=== PATIENT | female | born 2000 | race African-American/Black ===

== ENCOUNTER 2021-08-23 16:23 | Emergency (ER) | payer MEDICAID ==
[~2021-08-23] VITALS: Ht 152 cm; Wt 70.0 kg
--- NOTE | 2021-08-23 17:07 | ED Abdominal Pain ---
General Chief Complaint: OB < 20 WEEKS Stated Complaint: 18 WKS PREG/PRESSURE Nursing Triage Note: Pt c/o lower abd pressure x3 days. Pt is approx 18 wks . Pt denies any bleeding or discharge. States pain has been fairly constant over last 3 days but a little worse today. Source of Information: Patient Exam Limitations: No Limitations History of Present Illness Date Seen by Provider: Aug 23, 2021 Time Seen by Provider: 17:05 Initial Comments Patient is a 21-year-old female who is G2, P1 who presents ED with lower abdominal pressure for the past 3 days. Pain for the most part has been constant. No radiation. She denies of any urinary symptoms such as frequent urination, dysuria, vaginal bleeding, vaginal discharge. Not concern for sexual transmitted infection. She is currently being managed by Dr. Nguyen. She is scheduled to follow-up with Dr. Hernandez. Was recommended come to ED for further evaluation. No fever, vomiting, diarrhea. She does not appear in acute distress Allergies and Home Medications Allergies Coded Allergies: No Known Drug Allergies (Unverified , 08/23/21) Patient Home Medication List Home Medication List Reviewed: Yes Review of Systems Review of Systems Constitutional: No chills, No diaphoresis, No malaise, No weakness EENTM: No Blurred Vision, No Double Vision Respiratory: Denies Cough Cardiovascular: Denies Chest Pain, Denies Edema Gastrointestinal: Abdominal Pain; Denies Diarrhea, Denies Nausea Genitourinary: Denies Burning, Denies Frequency, Denies Flank Pain Musculoskeletal: No back pain, No joint pain Skin: No change in color All Other Systems Reviewed Negative Unless Noted: Yes Past Qbcdepw-Cmpcla-Dwoyzp Hx Patient Social History Tobacco Use?: No Substance use?: No Alcohol Use?: No Past Medical History Surgery/Hospitalization HX: pt denies PMH, previous Expected Date of Delivery: Jan 21, 2022 Physical Exam Vital Signs Vital Signs - First Documented 08/23/21 16:40 Temp 37.3 Pulse 84 Resp 18 B/P (MAP) 126/79 (95) Pulse Ox 100 O2 Delivery Room Air Capillary Refill : Less Than 3 Seconds Height/Weight/BMI Height: '" Weight: lbs. oz. kg; 30.00 BMI Method: General Appearance: WD/WN, no apparent distress HEENT: PERRL/EOMI, normal ENT inspection, TMs normal, pharynx normal Neck: non-tender, full range of motion, supple Respiratory: chest non-tender, lungs clear, normal breath sounds, no respiratory distress Cardiovascular: regular rate, rhythm, no edema, no gallop, no JVD Gastrointestinal: normal bowel sounds, non tender, soft, no organomegaly, no pulsatile mass Extremities: normal range of motion, non-tender, normal inspection, no pedal edema Back: normal inspection, no CVA tenderness, no vertebral tenderness Neurologic/Psychiatric: appeals representative II-XII nml as tested, no motor/sensory deficits, alert, normal mood/affect, oriented x 3 Skin: normal color, warm/dry Progress/Results/Core Measures Results/Orders Lab Results Laboratory Tests Test 08/23/21 17:14 08/23/21 17:18 Range/Units Urine Color YELLOW Urine Clarity SL CLOUDY Urine pH 6.0 5-9 Urine Specific [address] Circle >=1.030 1.016-1.022 Urine Protein NEGATIVE NEGATIVE Urine Glucose (UA) NEGATIVE NEGATIVE Urine Ketones NEGATIVE NEGATIVE Urine Nitrite NEGATIVE NEGATIVE Urine Bilirubin NEGATIVE NEGATIVE Urine Urobilinogen 0.2 < = 1.0 MG/DL Urine Leukocyte Esterase NEGATIVE NEGATIVE Urine RBC (Auto) NEGATIVE NEGATIVE Urine RBC RARE /HPF Urine WBC 2-5 /HPF Urine Squamous Epithelial Cells 2-5 /HPF Urine Crystals NONE /LPF Urine Bacteria MODERATE H /HPF Urine Casts NONE /LPF Urine Mucus NEGATIVE /LPF Urine Culture Indicated YES White Blood Count 14.7 H 4.3-11.0 10^3/uL Red Blood Count 4.26 3.80-5.11 10^6/uL Hemoglobin 9.4 L 11.5-16.0 g/dL Hematocrit 29 L 35-52 % Mean Corpuscular Volume 68 L 80-99 fL Mean Corpuscular Hemoglobin 22 L 25-34 pg Mean Corpuscular Hemoglobin Concent 32 32-36 g/dL Red Cell Distribution Width 14.6 H 10.0-14.5 % Platelet Count 370 130-400 10^3/uL Mean Platelet Volume 10.6 9.0-12.2 fL Immature Granulocyte % (Auto) 0 % Neutrophils (%) (Auto) 69 42-75 % Lymphocytes (%) (Auto) 24 12-44 % Monocytes (%) (Auto) 6 0-12 % Eosinophils (%) (Auto) 1 0-10 % Basophils (%) (Auto) 0 0-10 % Neutrophils # (Auto) 10.2 H 1.8-7.8 10^3/uL Lymphocytes # (Auto) 3.5 1.0-4.0 10^3/uL Monocytes # (Auto) 0.9 0.0-1.0 10^3/uL Eosinophils # (Auto) 0.1 0.0-0.3 10^3/uL Basophils # (Auto) 0.0 0.0-0.1 10^3/uL Immature Granulocyte # (Auto) 0.1 0.0-0.1 10^3/uL Neutrophils % (Manual) 64 % Lymphocytes % (Manual) 29 % Monocytes % (Manual) 3 % Eosinophils % (Manual) 4 % Helmet Cells SLIGHT Elliptocytes SLIGHT Sodium Level 135 135-145 MMOL/L Potassium Level 3.5 L 3.6-5.0 MMOL/L Chloride Level 106 98-107 MMOL/L Carbon Dioxide Level 21 21-32 MMOL/L Anion Gap 8 5-14 MMOL/L Blood Urea Nitrogen 11 7-18 MG/DL Creatinine 0.68 0.60-1.30 MG/DL Estimat Glomerular Filtration Rate 125 BUN/Creatinine Ratio 16 Glucose Level 84 70-105 MG/DL Calcium Level 8.8 8.5-10.1 MG/DL Corrected Calcium 9.2 8.5-10.1 MG/DL Total Bilirubin 0.3 0.1-1.0 MG/DL Aspartate Amino Transf (AST/SGOT) 13 5-34 U/L Alanine Aminotransferase (ALT/SGPT) 19 0-55 U/L Alkaline Phosphatase 69 40-136 U/L Total Protein 7.0 6.4-8.2 GM/DL Albumin 3.5 3.2-4.5 GM/DL My Orders Orders - SPENCER WILKES Ua Culture If Indicated (08/23/21 17:04) Cbc With Automated Diff (08/23/21 17:04) Comprehensive Metabolic Panel (08/23/21 17:04) Heart Tones (08/23/21 17:04) Manual Differential (08/23/21 17:18) Urine Culture (08/23/21 17:14) Vital Signs/I&O 08/23/21 08/23/21 16:40 17:50 Temp 37.3 Pulse 84 77 Resp 18 18 B/P (MAP) 126/79 (95) 118/70 Pulse Ox 100 100 O2 Delivery Room Air Room Air Blood Pressure Mean: 95 Departure Communication (PCP) Bedside ultrasound cardiac activity. heart tones 156. Lab work otherwise unremarkable besides hemoglobin 9. Urinalysis negative for infection. Symptoms likely round ligament pain from . Continue with conservative treatment at this time. Tylenol for pain. Recommend ASS[employer] outpatient follow- up. If any worsening symptoms return back to ED. No surgical abdomen. Distress the importance of continue her prenatals. Talk to her primary care physician for the hemoglobin. Patient vital signs stable. She is not diabetic or hypertensive. Continue with conservative treatment at this time with Tylenol and rest. Recommend recheck of hemoglobin. Impression Primary Impression: Abdominal pain Disposition: HOME, SELF-CARE Condition: Stable Departure-Patient Inst. Decision time for Depature: 17:39 Referrals: ANIBAL NGUYEN MD (PCP/Family) Primary Care Physician Patient Instructions: Abdominal Pain, Adult ED Work/School Note: Work Release Form Date Seen in the Emergency Department: Aug 23, 2021 Return to Work: Aug 26, 2021 SPENCER WILKES Aug 23, 2021 17:07
[2021-08-23 17:21] LABS: BILIRUBIN,URINE NEGATIVE (NEGATIVE); CLARITY,URINE SL CLOUDY; COLOR,URINE YELLOW; GLUCOSE, URINE (UA) NEGATIVE (NEGATIVE); KETONES,URINE NEGATIVE (NEGATIVE); LEUKOCYTE ESTERASE ,URINE NEGATIVE (NEGATIVE); NITRITE,URINE NEGATIVE (NEGATIVE); PROTEIN,URINE NEGATIVE (NEGATIVE)
[2021-08-23 17:22] LABS: BASOPHILS % (AUTO) 0 % (0-10); EOSINOPHILS # (AUTO) 0.1 10^3/uL (0.0-0.3); EOSINOPHILS % (AUTO) 1 % (0-10); HEMATOCRIT 29 % (35-52); HEMOGLOBIN 9.4 g/dL (11.5-16.0); LYMPHOCYTES # (AUTO) 3.5 10^3/uL (1.0-4.0); LYMPHOCYTES % (AUTO) 24 % (12-44); MEAN CORPUSCULAR HEMOGLOBIN 22 pg (25-34); MEAN CORPUSCULAR HGB CONC 32 g/dL (32-36); MEAN CORPUSCULAR VOLUME 68 fL (80-99); MEAN PLATELET VOLUME 10.6 fL (9.0-12.2); MONOCYTES # (AUTO) 0.9 10^3/uL (0.0-1.0); MONOCYTES % (AUTO) 6 % (0-12); NEUTROPHILS # (AUTO) 10.2 10^3/uL (1.8-7.8); NEUTROPHILS % (AUTO) 69 % (42-75); PLATELET COUNT 370 10^3/uL (130-400); WHITE BLOOD COUNT 14.7 10^3/uL (4.3-11.0)
[2021-08-23 17:29] LABS: BACTERIA,URINE MODERATE /HPF; RBC,URINE RARE /HPF
[2021-08-23 17:30] LABS: ALBUMIN 3.5 GM/DL (3.2-4.5); POTASSIUM 3.5 MMOL/L (3.6-5.0)
[2021-08-23 17:32] LABS: CALCIUM 8.8 MG/DL (8.5-10.1)
[2021-08-23 17:35] LABS: BILIRUBIN,TOTAL 0.3 MG/DL (0.1-1.0)
[2021-08-23 17:36] LABS: CREATININE SERUM 0.68 MG/DL (0.60-1.30)
[2021-08-23 17:50] VITALS: BP 118/70
[2021-08-23 18:01] LABS: ELLIPT/OVALOCYTES SLIGHT; EOSINOPHILS % (MANUAL) 4 %; HELMET/BITE CELLS SLIGHT; LYMPHOCYTES % (MANUAL) 29 %; MONOCYTES % (MANUAL) 3 %; NEUTROPHILS % (MANUAL) 64 %
== END 2021-08-23 17:49 | disposition home or self-care (01) ==
LOC: EDUNIT# 16:23 → ER 16:25
DX: O26.892 Other specified pregnancy related conditions, second trimester (principal); R10.30 Lower abdominal pain, unspecified; Z3A.18 18 weeks gestation of pregnancy
CPT/HCPCS: 36415; 80053; 81000; 85007; 85027; 87088

== ENCOUNTER 2021-10-26 11:15 | Outpatient (CLI) | payer MEDICAID ==
[~2021-10-26] VITALS: Ht 152.4 cm; Wt 71.2 kg
[2021-10-26 11:30] VITALS: BP 114/68
[2021-10-26] MEDS ORDERED: ONDANSETRON 4 MG/2 ML (SDV) Z0FRAN IVP ONE (12:00)
[2021-10-26] MEDS: D5 LR IV SOLUTION 1,000 ML IV SCH ×2 (12:21→15:00)
[2021-10-26 12:25] VITALS: BP 104/63
[2021-10-26 12:34] LABS: BILIRUBIN,URINE NEGATIVE (NEGATIVE); CLARITY,URINE CLEAR; COLOR,URINE YELLOW; GLUCOSE, URINE (UA) NEGATIVE (NEGATIVE); KETONES,URINE 2+ (NEGATIVE); LEUKOCYTE ESTERASE ,URINE NEGATIVE (NEGATIVE); NITRITE,URINE NEGATIVE (NEGATIVE); PROTEIN,URINE TRACE (NEGATIVE)
[2021-10-26 12:37] LABS: BASOPHILS % (AUTO) 0 % (0-10); EOSINOPHILS % (AUTO) 0 % (0-10); HEMATOCRIT 27 % (35-52); HEMOGLOBIN 8.7 g/dL (11.5-16.0); LYMPHOCYTES # (AUTO) 1.6 10^3/uL (1.0-4.0); LYMPHOCYTES % (AUTO) 14 % (12-44); MEAN CORPUSCULAR HEMOGLOBIN 22 pg (25-34); MEAN CORPUSCULAR HGB CONC 32 g/dL (32-36); MEAN CORPUSCULAR VOLUME 68 fL (80-99); MEAN PLATELET VOLUME 10.8 fL (9.0-12.2); MONOCYTES # (AUTO) 0.4 10^3/uL (0.0-1.0); MONOCYTES % (AUTO) 4 % (0-12); NEUTROPHILS # (AUTO) 9.1 10^3/uL (1.8-7.8); NEUTROPHILS % (AUTO) 81 % (42-75); PLATELET COUNT 278 10^3/uL (130-400); WHITE BLOOD COUNT 11.3 10^3/uL (4.3-11.0)
[2021-10-26 12:46] LABS: BACTERIA,URINE MODERATE /HPF; WBC,URINE RARE /HPF
[2021-10-26 13:02] LABS: ALBUMIN 3.1 GM/DL (3.2-4.5); BILIRUBIN,TOTAL 0.6 MG/DL (0.1-1.0); CALCIUM 8.7 MG/DL (8.5-10.1); CREATININE SERUM 0.63 MG/DL (0.60-1.30); POTASSIUM 3.7 MMOL/L (3.6-5.0); TOTAL PROTEIN 6.7 GM/DL (6.4-8.2)
--- NOTE | 2021-10-27 08:37 | Physician Query-Final Dx ---
JUAN10/27/21 0837: Clinic Account Progress/Dx Physician Query: Please give diagnosis Please include # weeks gestation Date of Service Oct 26, 2021 at 11:15 ADELAIDE JAIN MD 10/27/21 1104: Clinic Account Progress/Dx DIAGNOSIS: Diagnosis Hyperemesis gravidarum at 27 weeks gestation JUAN,MarOct 27, 2021 08:37 ADELAIDE JAIN MD Oct 27, 2021 11:04
== END 2021-10-26 16:47 | disposition home or self-care (01) ==
LOC: WSo 11:15 → LDRP 11:17 → WSo 16:47
PROVIDERS: ATTEND Obstetrics & Gynecology
DX: O21.0 Mild hyperemesis gravidarum (principal); Z3A.27 27 weeks gestation of pregnancy
CPT/HCPCS: 36415; 80053; 81000; 85025; 87088; 87636

== ENCOUNTER 2022-01-16 04:06 | Outpatient (CLI) | payer MEDICAID ==
[~2022-01-16] VITALS: Ht 152.4 cm; Wt 72.2 kg
[~2022-01-16 04:06] MED LIST: CEPH500T PO
[2022-01-16 04:45] VITALS: BP 128/79
[2022-01-16 05:08] LABS: BILIRUBIN,URINE NEGATIVE (NEGATIVE); CLARITY,URINE CLEAR; COLOR,URINE YELLOW; GLUCOSE, URINE (UA) NEGATIVE (NEGATIVE); KETONES,URINE NEGATIVE (NEGATIVE); LEUKOCYTE ESTERASE ,URINE 1+ (NEGATIVE); NITRITE,URINE NEGATIVE (NEGATIVE); PH,URINE 6.5 (5-9); PROTEIN,URINE NEGATIVE (NEGATIVE)
[2022-01-16 05:22] LABS: BACTERIA,URINE MODERATE /HPF; SQUAMOUS EPITHELIAL CELL,UR 25-50 /HPF
[2022-01-16] MEDS ORDERED: NS IV 1000 ML 500 ML IV SCH (05:30)
[2022-01-16] MEDS ORDERED: ceFAZolin INJECTION 1,000 MG VIAL IV ONE (05:30)
[2022-01-16] MEDS ORDERED: ceFAZolin INJECTION 1,000 MG ONE (05:39)
[2022-01-16] MEDS ORDERED: NS (IVPB) 50 ML ONE (05:40)
[2022-01-16] MEDS ORDERED: NS IV 1000 ML 1,000 ML ONE (05:40)
[2022-01-16 06:57] VITALS: BP 135/90
[2022-01-16] MEDS ORDERED: PNV11TAB5 PO (15:19)
[2022-01-17] MEDS ORDERED: IBUP-844 PO (08:30)
[2022-01-17] MEDS ORDERED: DIBU30OI TOP (08:30)
[2022-01-17] MEDS ORDERED: ACHD5005 PO (08:30)
[2022-01-17] MEDS ORDERED: BENZ78AE5 TP (08:30)
[2022-01-17] MEDS ORDERED: FERR325T24 PO (08:30)
--- NOTE | 2022-01-17 09:31 | Physician Query-Final Dx ---
JUAN,01/17/22 0931: Clinic Account Progress/Dx Physician Query: Please give diagnosis Please include # weeks gestation Date of Service Jan 16, 2022 at 04:06 ILANA MARTE DO 01/17/22 0943: Clinic Account Progress/Dx DIAGNOSIS: Diagnosis 39 week, JAMAR MARTINEZ,MarJan 17, 2022 09:31 ILANA MARTE DO Jan 17, 2022 09:43
== END 2022-01-16 06:57 ==
LOC: WSo 04:06 → LDRP 04:06 → WSo 06:57
PROVIDERS: ATTEND Obstetrics & Gynecology
DX: O23.43 Unspecified infection of urinary tract in pregnancy, third trimester (principal); Z3A.39 39 weeks gestation of pregnancy
CPT/HCPCS: 81000; 87088; 96361; 96374; 99213

== ENCOUNTER 2022-01-16 12:25 | Inpatient (IN) | payer MEDICAID ==
[2022-01-16] VITALS (14 sets, daily range): BP systolic 106–148; BP diastolic 66–95
[~2022-01-16] VITALS: Ht 152 cm; Wt 72.2 kg
[2022-01-16] MEDS ORDERED: D5 LR IV SOLUTION 1,000 ML IV ONE (12:29)
[2022-01-16] MEDS ORDERED: D5 LR IV SOLUTION 1,000 ML IV SCH (13:00)
[2022-01-16] MEDS ORDERED: HYDROmorphone 2 MG/ML VIAL (DILAUDID) IV NR (13:00)
[2022-01-16] MEDS ORDERED: LIDOCAINE 1% INJ 20 ML VIAL IJ PRN ×2 (13:00→13:55)
[2022-01-16] MEDS ORDERED: HYDROmorphone 2 MG/ML VIAL (DILAUDID) ONE (13:01)
[2022-01-16] MEDS ORDERED: OXYTOCIN PRE-MIX DRIP 500 ML IV ONE (13:01)
--- NOTE | 2022-01-16 13:03 | History & Physical-OB ---
NOAM BARRERA 01/16/22 1303: OB - Chief Complaint & HPI Date/Time Date of Admission: Date of Admission: Date seen by a Provider: Jan 16, 2022 Time Seen by a Provider: 12:45 Chief Complaint/History OB-Reason for Admission/Chief: Onset of Labor Hx : 2 Hx Para: 1 Expected Date of Delivery: Jan 21, 2022 Gestational Age in Weeks: 39 Gestational Age in Days: 2 Admission Nurse Assessment Rev: Yes Allergies and Home Medications Allergies Coded Allergies: No Known Drug Allergies (Unverified , 08/23/21) Patient Home Medication List Home Medication List Reviewed: Yes Cephalexin (Cephalexin) 500 Mg Tablet, 500 MG PO QID Prescribed by: MAX MARTE on 01/14/22 1542 Last Action: Reviewed Jys613/FA/Omega3/Dha/Fish Oil ( Gummies) 400 Mcg-32.5 Mg (25 Mg-7.5 Mg) Tab.chew, 1 EACH PO DAILY, (Reported) Entered as Reported by: KALIE SALMON on 01/16/22 151 Last Action: New Order OB - History Hx of Present Care: Yes Ultrasounds: Normal mid trimester US Obstetrical Complications: None Medical Complications: None Information Induced Hypertension: No Maternal Gestational Diabetes: No Delivery History Hx Section: Yes Patient Past Medical History Patient denies having any past medical history. Has had a previous cesarian section and left knee surgery. Social History/Family History Alcohol Use: Denies Use Recreational Drug Use: No Smoking Cessation: Never smoker 2nd Hand Smoke Exposure: No Immunizations Hepatitis A: Yes Hepatitis B: Yes Tetanus Booster (TDap): Less than 5yrs Rubella: immune RPR/VDRL: Negative GBS Status: Negative HBsAG: Negative OB - Admission Exam Physical Exam HEENT: Moist Membranes Heart: Rhythm Normal Lungs: Clear Abdomen: Non tender Extremities: Normal Cervical Dilatation: 8cm Effacement: 100% Station: -3 Membranes: Intact Heart Rate: 140's Accelerations: Accelerations Present Decelerations: No Decelerations Short Term Variability: Present Custodial Variability: Average (6-25) Contractions on Admission: < 5 Minutes Apart Date/Time Contractions Began;: 344 this morning Frequency of Contractions: Currently every 2 minutes Duration: 1 minute Intensity: Firm OB - Assessment/Plan/Diagnosis Assessment Assessment: active labor Admission Dx Patient is a 21yo F that is at 39w2d. She has had a section previously and is wanting to attempt . She was having contractions this morning and came to the hospital. She was diagnosed with a UTI last week and has been taking Abx. There were concerns that her UTI was not treated with the oral Abx so she was given IV Abx this morning for the UTI. She was discharged home afterwards but continued to have contractions throughout the day. Around 12:30 today her contractions started to be less than 10 minutes apart so she decided to come back to the hospital. She was 7-8cm dilated when she arrived to the ER and was admitted for active labor. Patient is currently experiencing painful contractions and states she is in a lot of pain. Her contractions are occuring about 2 minutes apart. Patient denies her water breaking at home or in the hospital. Per nurses report, the patient has had s small amount of clear vaginal fluid since being admitted. Patient denies headache, chest pain, sob, nausea, and vomiting. Admission Status: Observation Plan Plan: Expectant Management Other Plan Expectant management is being done. Continual cervical checks. Dilaudid was ordered for pain control along and narcan. MAX MARTE DO 01/17/22 0716: OB - Chief Complaint & HPI Date/Time Date seen by a Provider: Jan 16, 2022 Time Seen by a Provider: 13:30 Allergies and Home Medications Allergies Coded Allergies: No Known Drug Allergies (Unverified , 08/23/21) Patient Home Medication List Home Medication List Reviewed: Yes Cephalexin (Cephalexin) 500 Mg Tablet, 500 MG PO QID Prescribed by: MAX MARTE on 01/14/22 1542 Last Action: Reviewed Dmy533/FA/Omega3/Dha/Fish Oil ( Gummies) 400 Mcg-32.5 Mg (25 Mg-7.5 Mg) Tab.chew, 1 EACH PO DAILY, (Reported) Entered as Reported by: KALIE SALMON on 01/16/22 2239 Last Action: New Order OB - History Hx of Present Care: Yes Ultrasounds: Normal mid trimester US Obstetrical Complications: None Medical Complications: None Patient Past Medical History n/a OB - Admission Exam Physical Exam Cervical Dilatation: 8cm OB - Assessment/Plan/Diagnosis Assessment Assessment: active labor Admission Dx 21 yo @ 39 Weeks TOLAC GBS neg Plan correction: Dilaudid given, but narcan will be available to use for infant at . Verification and Attestation of Medical Student E/M Service A medical student performed and documented this service in my presence. I reviewed and verified all information documented by the medical student and made modifications to such information, when appropriate. I personally performed the physical exam and medical decision making. aMx Marte, Jan 17, 2022,07:15 Admission Status: Inpatient Order (span 2 midnights) Reason for Inpatient Admission: Active labor at 39 weeks Plan Plan: Expectant Management NOAM BARRERA Jan 16, 2022 13:03 MAX MARTE DO Jan 17, 2022 07:16
[2022-01-16] MEDS ORDERED: LIDOCAINE 1% INJ 10 ML VIAL ONE (13:04)
[2022-01-16 13:09] LABS: BASOPHILS # (AUTO) 0.1 10^3/uL (0.0-0.1); BASOPHILS % (AUTO) 0 % (0-10); EOSINOPHILS % (AUTO) 0 % (0-10); HEMATOCRIT 28 % (35-52); HEMOGLOBIN 8.9 g/dL (11.5-16.0); LYMPHOCYTES # (AUTO) 5.2 10^3/uL (1.0-4.0); LYMPHOCYTES % (AUTO) 36 % (12-44); MEAN CORPUSCULAR HEMOGLOBIN 21 pg (25-34); MEAN CORPUSCULAR HGB CONC 32 g/dL (32-36); MEAN CORPUSCULAR VOLUME 64 fL (80-99); MEAN PLATELET VOLUME 11.5 fL (9.0-12.2); MONOCYTES # (AUTO) 0.7 10^3/uL (0.0-1.0); MONOCYTES % (AUTO) 5 % (0-12); NEUTROPHILS # (AUTO) 8.3 10^3/uL (1.8-7.8); NEUTROPHILS % (AUTO) 58 % (42-75); PLATELET COUNT 308 10^3/uL (130-400); WHITE BLOOD COUNT 14.4 10^3/uL (4.3-11.0)
[2022-01-16] MEDS ORDERED: BUPIVACAINE 0.25% 30 ML (SENSORCAINE) VIAL ONE (13:27)
[2022-01-16] MEDS ORDERED: fentaNYL INJ 100 MCG/2 ML AMP ONE (13:27)
[2022-01-16] MEDS: OXYTOCIN PRE-MIX DRIP 500 ML IV SCH ×2 (13:54→14:34)
[2022-01-16] MEDS ORDERED: NALOXONE 0.4 MG/ML 1 ML (NARCAN) VIAL ONE (13:56)
[2022-01-16] MEDS ORDERED: CATHETER FLUSH 10 ML SYR IV SCH (14:00)
[2022-01-16 14:05] LABS: LYMPHOCYTES % (MANUAL) 58 %; MONOCYTES % (MANUAL) 4 %; NEUTROPHILS % (MANUAL) 40 %; PLATELET ESTIMATE NORMAL
[2022-01-16 14:06] LABS: ANISOCYTOSIS SLIGHT
[2022-01-16] MEDS ORDERED: TETANUS,DIPTH,PERTUSS P/F (BOOSTRIX) 0.5 ML VIAL IM ONE (14:15)
[2022-01-16] MEDS ORDERED: NALOXONE 0.4 MG/ML 1 ML (NARCAN) VIAL IV PRN (14:15)
[2022-01-16] MEDS ORDERED: HYDROcodone/APAP 5 MG/325 MG (LORTAB) TAB PO PRN (14:15)
[2022-01-16] MEDS ORDERED: MEASLES,MUMPS,RUBELLA 1 EA INJ SQ ONE (14:15)
--- NOTE | 2022-01-16 14:21 | OB Labor & Delivery Record ---
L&D History Date of Service Date of Service: Jan 16, 2022 History Expected Date of Delivery: Jan 21, 2022 Gestational Age in Weeks: 39 Hx : 2 Hx Para: 1 Complications Events: Routine care Operative Indications (Cesarea: N/A-Vaginal Delivery Intrapartal Events: Precipitous Labor < 3 hrs L&D Stage1 Stage One Onset of Labor - Date: Jan 16, 2022 Rupture of Membranes Spontaneous Ruture of Membrane: Yes Amniotic Membrane Fluid Desc.: Clear Progress/Notes Patient arrived 8 cm dialated out of control in pain, RN requesting pain medication in order to calm patient to allow for admission orders and protocol. 1 mg Dilaudid ordered. She rapidly progressed after to complete and + 2 station L&D Stage2 Stage Two Stage II Date: Jan 16, 2022 Monitors and Tracing Monitor Mode: External Monitor Decelerations: Variable Care Home Variability: Average (6-10) Short Term Variability: Present Position: Right Occiput Anterior Presentation: Vertex Cord Descript/Complications Cord Vessel Description: 3 Vessels Delivery Type Delivery Method: Spontaneous Vaginal Anterior Shoulder: Left Episiotomy/Perineal Laceration Laceraction(s)/Extensions: Yes Episiotomy Description: Perineal Extension/lac, 3rd degree Degree (describe repair) repaired using 3-0 rapide and 2-0 vicryl suture in usual fashion Condition of Delivery 1 minute Comment: 5 5 minute Comment: 4 Notes live female infant apgars 5/4/9, Weight 7lbs 8 oz Condition of Condition of : Living Resuscitation Resuscitation: Intubation (LMA placed, once responsive removed.) L&D Stage3 Stage Three Stage III Date: Jan 16, 2022 Pictocin Pitocin Administration Comment: 30 mu wide open after delivery of placenta Placenta Delivery Placenta Delivery: Spontaneous Delivery Summary Summary Estimated blood loss (mL): 350 Attending at delivery: Ilana Marte DO Condition of Delivery Examined: Cervix Examined, Uterus Explored Post Hemorrhage: No Condition of Mother stable Condition of Infant (s) stable ILANA MARTE DO Jan 16, 2022 14:21
--- NOTE | 2022-01-16 14:23 | Discharge Inst-Women's Service ---
Discharge Inst-Women's Serv Depart Medication/Instructions New, Converted or Re-Newed RX: Transmitted to Pharmacy Final Diagnosis PPD 1 NVD Problems Reviewed?: Yes Consults/Follow Up Additional Follow Up: Yes Orders/Referrals Dr. Marte in 6 weeks Activity Activity: Activity as Tolerated Driving Instructions: No Driving for 1 Week NO SMOKING: NO SMOKING Nothing Inside Vagina: No Douching, No [place], No Tampons Diet Discharge Diet: No Restrictions Symptoms to Report to : Bleeding Excessive, Pain Increased, Fever Over 101 Degrees F, Vaginal Bleeding Increase, Questions/Concerns For Any Problems or Questions: Contact Your Physician ILANA MARTE DO Jan 16, 2022 14:23
[2022-01-16] MEDS ORDERED: PNV11TAB5 PO (15:19)
[2022-01-16] MEDS: WITCH HAZEL(TUCKS) 40 EA JAR TOP PRN (15:21)
[2022-01-16] MEDS: BENZOCAINE/MENTHOL (DERMOPLAST) 56 ML CAN TP PRN (15:21)
[2022-01-16] MEDS: IBUPROFEN 600 MG (MOTRIN) TAB PO SCH ×2 (15:39→22:05)
[2022-01-16] MEDS: DIBUCAINE 1% OINTMENT 30 GM TUBE TOP PRN (17:04)
[2022-01-16] MEDS: DOCUSATE SODIUM 100 MG (COLACE) CAP PO SCH (22:05)
[2022-01-17] VITALS: BP 113/78
[2022-01-17 04:11] VITALS: BP 121/64
[2022-01-17] MEDS: IBUPROFEN 600 MG (MOTRIN) TAB PO SCH ×2 (04:13→10:23)
[2022-01-17 05:45] LABS: BASOPHILS % (AUTO) 0 % (0-10); EOSINOPHILS % (AUTO) 0 % (0-10); LYMPHOCYTES # (AUTO) 3.2 10^3/uL (1.0-4.0); LYMPHOCYTES % (AUTO) 21 % (12-44); MEAN CORPUSCULAR HEMOGLOBIN 21 pg (25-34); MEAN CORPUSCULAR HGB CONC 32 g/dL (32-36); MEAN CORPUSCULAR VOLUME 65 fL (80-99); MEAN PLATELET VOLUME 12.1 fL (9.0-12.2); MONOCYTES % (AUTO) 7 % (0-12); NEUTROPHILS # (AUTO) 10.6 10^3/uL (1.8-7.8); NEUTROPHILS % (AUTO) 71 % (42-75); PLATELET COUNT 259 10^3/uL (130-400)
[2022-01-17 05:50] LABS: HEMATOCRIT 18 % (35-52); HEMOGLOBIN 5.7 g/dL (11.5-16.0)
[2022-01-17] MEDS ORDERED: PRENATAL VITAMIN 1 EA TAB PO SCH (07:00)
[2022-01-17] MEDS ORDERED: FLU QUADRIvalent (6 months+) 60 mcg/0.5 ml 2022-23 (Fluzone) IM ONE ×2 (07:00→10:31)
--- NOTE | 2022-01-17 07:24 | Postpartum Progress Note ---
MARIEL BROWN 01/17/22 0724: Note Note Day # 1 Subjective: Patient is without complaints. Ambulating, able to urinate w/ burning sensation after delivery but reports burning sensation has since gone away; Pt hasn't had bowel movement yet. Tolerating a regular diet without nausea or vomiting. Normal lochia with 3-4 pad changes since delivery. Pain is well controlled with oral pain medications. Pt is currently breast feeding. Pt states that breast feeding causes some contractions of the uterus which causes some pain. Objective: Pt seems to be in good spirit. Pt was sitting up in bed during interview and exam. Labs show elevated WBC @ 15 and low Hb and Hct at 5.7 and 18% respectively. Hb changed from 8.9, from previous day, to 5.7 today; Hct changed from 28%, from previous day, to 18. Physical Exam: General - Alert and oriented, no apparent distress Heart: RRR w/o murmurs or gallops Respiratory: CTAB w/o wheezes or rhonchi Abdomen - Soft, appropriately tender to palpation, non-distended, fundus firm at umbilicus Extremities - no edema, negative Willie's bilaterally Assessment: post- day # 1, status post vaginal delivery. Recovering well, hemodynamically stable Plan: Routine care. Encourage breast feeding. Encourage ambulation. Ferrous sulfate supplementation. Plan for discharge Vitals - Labs Vital Signs - I&O Vital Signs Date Time Temp Pulse Resp B/P (MAP) Pulse Ox O2 Delivery O2 Flow Rate FiO2 01/17/22 04:11 37.0 83 16 121/64 (83) 98 Room Air 01/17/22 00:00 36.2 87 18 113/78 (90) 100 Room Air 01/16/22 20:00 36.3 88 18 128/67 (87) 98 Room Air 01/16/22 16:08 108 18 115/73 (87) 01/16/22 15:36 36.3 103 18 110/75 (87) 01/16/22 15:20 107 18 106/74 (85) 01/16/22 15:00 105 18 106/75 (85) 01/16/22 14:50 107 18 123/76 (92) 01/16/22 14:35 96 18 119/74 (89) 01/16/22 14:15 99 18 131/86 (101) 01/16/22 14:05 117 18 116/68 (84) 01/16/22 13:45 36.5 85 18 148/68 (94) 01/16/22 13:32 88 20 141/80 (100) 100 Non Rebreather 15.00 01/16/22 13:17 82 20 137/66 (89) 100 Non Rebreather 15.00 01/16/22 13:00 37.3 76 20 100 Room Air 01/16/22 12:46 37.3 76 20 138/95 (109) 100 Room Air I & O 01/17/22 07:00 Intake Total 2000 ml Balance 2000 ml Labs Laboratory Tests 01/16/22 12:35: White Blood Count 14.4H, Red Blood Count 4.33, Hemoglobin 8.9L, Hematocrit 28L, Mean Corpuscular Volume 64L, Mean Corpuscular Hemoglobin 21L, Mean Corpuscular Hemoglobin Concent 32, Red Cell Distribution Width 15.2H, Platelet Count 308, Mean Platelet Volume 11.5, Immature Granulocyte % (Auto) 1, Neutrophils (%) (Auto) 58, Lymphocytes (%) (Auto) 36, Monocytes (%) (Auto) 5, Eosinophils (%) (Auto) 0, Basophils (%) (Auto) 0, Neutrophils # (Auto) 8.3H, Lymphocytes # ( Auto) 5.2H, Monocytes # (Auto) 0.7, Eosinophils # (Auto) 0.0, Basophils # (Auto) 0.1, Immature Granulocyte # (Auto) 0.1, Neutrophils % (Manual) 40, Lymphocytes % (Manual) 58, Monocytes % (Manual) 4, Platelet Estimate NORMAL, Anisocytosis SLIGHT 01/17/22 05:30: White Blood Count 15.0H, Red Blood Count 2.74L, Hemoglobin 5.7#*L, Hematocrit 18*L, Mean Corpuscular Volume 65L, Mean Corpuscular Hemoglobin 21L, Mean Corpuscular Hemoglobin Concent 32, Red Cell Distribution Width 15.0H, Platelet Count 259, Mean Platelet Volume 12.1, Immature Granulocyte % (Auto) 1, Neutrophils (%) (Auto) 71, Lymphocytes (%) (Auto) 21, Monocytes (%) (Auto) 7, Eosinophils (%) (Auto) 0, Basophils (%) (Auto) 0, Neutrophils # (Auto) 10.6H, Lymphocytes # (Auto) 3.2, Monocytes # (Auto) 1.0, Eosinophils # (Auto) 0.0, Basophils # (Auto) 0.0, Immature Granulocyte # (Auto) 0.1 MAX MARTE DO 01/17/22 0943: Note Note Verification and Attestation of Medical Student E/M Service A medical student performed and documented this service in my presence. I reviewed and verified all information documented by the medical student and made modifications to such information, when appropriate. I personally performed the physical exam and medical decision making. Max Marte, Jan 17, 2022,09:42 MARIEL BROWN Jan 17, 2022 07:24 MAX MARTE DO Jan 17, 2022 09:43
[2022-01-17] MEDS ORDERED: FERR325T24 PO (08:30)
[2022-01-17] MEDS ORDERED: IBUP-844 PO (08:30)
[2022-01-17] MEDS ORDERED: ACHD5005 PO (08:30)
[2022-01-17] MEDS ORDERED: BENZ78AE5 TP (08:30)
[2022-01-17] MEDS ORDERED: DIBU30OI TOP (08:30)
[2022-01-17] MEDS ORDERED: FERROUS SULF 325 MG (IRON) TAB PO SCH (09:00)
[2022-01-17 10:07] VITALS: BP 134/80
[2022-01-17] MEDS: DOCUSATE SODIUM 100 MG (COLACE) CAP PO SCH (10:23)
[2022-01-17] MEDS: FERROUS SULF 325 MG (IRON) TAB PO SCH ×2 (10:23→12:35)
[2022-01-17] MEDS: CATHETER FLUSH 10 ML SYR IV SCH ×3 (10:30→14:00)
[2022-01-17 12:37] VITALS: BP 134/80
[2022-01-17] MEDS: BENZOCAINE/MENTHOL (DERMOPLAST) 56 ML CAN TP PRN (14:23)
[2022-01-17] MEDS: DIBUCAINE 1% OINTMENT 30 GM TUBE TOP PRN (14:23)
[2022-01-17] MEDS: WITCH HAZEL(TUCKS) 40 EA JAR TOP PRN (14:23)
== END 2022-01-17 16:05 | disposition home or self-care (01) | DRG 768 ==
LOC: LDRP 12:25 → WSo 12:25 → LDRP 12:58
PROVIDERS: ADMIT Obstetrics & Gynecology; ATTEND Obstetrics & Gynecology
PROC: 10E0XZZ Delivery of Products of Conception, External Approach (ICD-10-PCS; principal; 2022-01-16)
PROC: 0DQR0ZZ Repair Anal Sphincter, Open Approach (ICD-10-PCS; 2022-01-16)
DX: O34.211 Maternal care for low transverse scar from previous cesarean delivery (principal); Z37.0 Single live birth; O23.43 Unspecified infection of urinary tract in pregnancy, third trimester; O70.20 Third degree perineal laceration during delivery, unspecified; Z3A.39 39 weeks gestation of pregnancy
CPT/HCPCS: 36415; 85007; 85025; 85027; 86780; 90686; 99212